=== PATIENT | male | born 1930 | race Caucasian/White ===

== ENCOUNTER 2016-10-04 14:58 | Inpatient (IN) | payer MEDICARE ==
[2016-10-04] MEDS ORDERED: SODIUM CHLORIDE 0.9% 500 ML IV STA (15:39)
[2016-10-04] MEDS ORDERED: SODIUM CHLORIDE 0.9% 1,000 ML IV STA (15:39)
[2016-10-04] MEDS ORDERED: RX INFO: IV CONTRAST WAS GIVEN 1 EACH MISC MISCELLANE PRN (15:41)
[2016-10-04] MEDS ORDERED: MENTHOL (NICE) LOZENGE MUCOUS MEM PRN (15:41)
--- NOTE | 2016-10-04 15:53 | ED ---
Weakness HPI - General Chief complaint: Weakness Stated complaint: Poss Dehydrated Time Seen by Provider: 10/04/16 15:29 Source: patient Mode of arrival: wheelchair Limitations: no limitations - History of Present Illness Initial comments: This 85-year-old white male presents complaining of generalized weakness. He states that he is still able to walk to the bathroom and back but that is about it. He relates a decrease in his appetite. He states that nothing seems to taste good. He denies any nausea or vomiting. He had some constipation his past week but was able to have a bowel movement and this seemed to resolve. He complains of a dry mouth. He complains of an occasional cough but this is nonproductive. He complains of some midepigastric abdominal pain. He denies any chest pain or shortness of breath. This is despite nursing notes that state that he had some chest pain. He does have a history of 2 inches of his esophagus being removed in 2002. He is followed up with Dr. Stiles from GI at our hospital previously. He states that he thinks he lost some weight over the past 3 days due to not eating. Her whole much weight he may have lost. He apparently saw his primary doctor recently who ordered a computed tomography scan of the chest abdomen and pelvis which she has not completed as of yet. He denies any other complaints or modifying factors. Denies any fevers or chills. - Related Data Home Medications Medication Instructions Recorded Confirmed Aspirin EC [Ecotrin Low Dose] 81 mg PO DAILY 10/04/16 10/04/16 Cholecalciferol [Vitamin D3] 1,000 unit PO 10/04/16 10/04/16 Clopidogrel [Plavix] 75 mg PO DAILY 10/04/16 10/04/16 L.acidoph,Paracasei, B.lactis 1 cap PO DAILY 10/04/16 10/04/16 [Probiotic] Levothyroxine Sodium [Synthroid] 25 mcg PO DAILY 10/04/16 10/04/16 Levothyroxine Sodium [Synthroid] 50 mcg PO DAILY 10/04/16 10/04/16 Omeprazole 20 mg PO DAILY 10/04/16 10/04/16 Pravastatin Sodium [Pravachol] 20 mg PO HS 10/04/16 10/04/16 Red Yeast Rice 600 mg PO DAILY 10/04/16 10/04/16 Vit C/E/Zn/Coppr/Lutein/Zeaxan 2 cap PO DAILY 10/04/16 10/04/16 [Preservision Areds 2 Softgel] Allergies Allergy/AdvReac Type Severity Reaction Status Date / Time No Known Allergies Allergy Verified 10/04/16 15:54 Review of Systems ROS Statement: Those systems with pertinent positive or pertinent negative responses have been documented in the HPI. ROS Other: All systems not noted in ROS Statement are negative. 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 VITAL SIGNS: Heart rate, blood pressure, respiratory rate reviewed as recorded in nurse's notes. EYES: Pupils are round and reactive. Extraocular movements are intact. No conjunctival / lid redness or swelling. ENT: No external evidence of injury, swelling, or ecchymosis. Airway is patent. Throat is clear. NECK: Nontender. No swelling or evidence of injury. No subcutaneous emphysema. Trachea is midline. No thyroid mass. HEART: Regular rate and rhythm. Good peripheral pulses. LUNGS/CHEST: Breath sounds clear and equal bilaterally. No rales, rhonchi, or wheezes. No ecchymosis, subcutaneous emphysema, or tenderness. ABDOMEN: There is mild tenderness noted to the midepigastric region. No palpable masses or organomegaly. No peritoneal signs. No abdominal wall swelling or ecchymosis. EXTREMITIES: No extremity tenderness. Normal muscle tone and function. No thoracolumbar tenderness. NEUROLOGIC: Sensation is grossly intact. Cranial nerve exam reveals face is symmetrical, tongue is midline, speech is clear. SKIN: No abrasions or ecchymosis is noted. No induration or masses noted. PSYCHIATRIC: Alert and oriented. Appropriate behavior and judgment. Limitations: no limitations Course Vital Signs 10/04/16 10/04/16 10/04/16 15:09 16:22 17:50 Temperature 96.7 F L Pulse Rate 100 70 69 Respiratory 18 18 18 Rate Blood Pressure 142/80 183/88 185/86 O2 Sat by Pulse 98 97 96 Oximetry Medical Decision Making - Medical Decision Making The patient was seen and examined. All diagnostics were reviewed. The EKG shows a normal sinus rhythm with no acute ST-T wave changes noted. An occasional PVC is noted. There are no acute ST-T wave changes identified. The NV interval is 132, QRS duration is 84, and the QTc interval is 444. An IV is started and he is hydrated. He refuses anything for pain. He does request a mouth lozenge for his dry mouth and this is ordered. Laboratories reviewed. The CT of the thorax abdomen and pelvis does show evidence of bilateral pneumonia as well as a right pleural effusion, a 4.6 cm thoracic aortic aneurysm , a bladder stone, and a liver hemangioma. It is felt that his weakness and decrease in appetite may be related to the pneumonia and he will be treated for this. He receives some Levaquin intravenously. The exact cause of his midepigastric abdominal pain is not definitively determine but it potentially could be related to a gastritis. GI prophylaxis will be maintained. Case is discussed with internal medicine and patient is admitted to the hospital for further treatment. - Lab Data Result diagrams: 10/04/16 15:50 10/04/16 15:50 Lab Results 10/04/16 10/04/16 10/04/16 Range/Units 14:20 15:50 15:50 WBC 8.1 (3.8-10.6) k/uL RBC 5.11 (4.30-5.90) m/uL Hgb 14.7 (13.0-17.5) gm/dL Hct 46.0 (39.0-53.0) % MCV 90.1 (80.0-100.0) fL MCH 28.8 (25.0-35.0) pg MCHC 32.0 (31.0-37.0) g/dL RDW 15.4 (11.5-15.5) % Plt Count 215 (150-450) k/uL Neutrophils % 86 % Lymphocytes % 6 % Monocytes % 6 % Eosinophils % 0 % Basophils % 0 % Neutrophils # 6.9 (1.3-7.7) k/uL Lymphocytes # 0.5 L (1.0-4.8) k/uL Monocytes # 0.5 (0-1.0) k/uL Eosinophils # 0.0 (0-0.7) k/uL Basophils # 0.0 (0-0.2) k/uL PT (9.0-12.0) sec INR (<1.1) APTT (22.0-30.0) sec Sodium (137-145) mmol/L Potassium (3.5-5.1) mmol/L Chloride (98-107) mmol/L Carbon Dioxide (22-30) mmol/L Anion Gap mmol/L BUN (9-20) mg/dL Creatinine (0.66-1.25) mg/dL Est GFR (MDRD) Af Amer (>60 ml/min/1.73 sqM) Est GFR (MDRD) Non-Af (>60 ml/min/1.73 sqM) Glucose (74-99) mg/dL Calcium (8.4-10.2) mg/dL Phosphorus (2.5-4.5) mg/dL Magnesium (1.6-2.3) mg/dL Total Bilirubin (0.2-1.3) mg/dL AST (17-59) U/L ALT (21-72) U/L Alkaline Phosphatase (38-126) U/L Total Creatine Kinase 46 L (55-170) U/L CK-MB (CK-2) 1.4 (0.0-2.4) ng/mL CK-MB (CK-2) Rel Index 3.0 Troponin I <0.012 (0.000-0.034) ng/mL Total Protein (6.3-8.2) g/dL Albumin (3.5-5.0) g/dL Amylase (30-110) U/L Lipase (23-300) U/L TSH (0.465-4.680) mIU/L Urine Color Yellow Urine Appearance Cloudy (Clear) Urine pH 5.5 (5.0-8.0) Ur Specific [place] 1.017 (1.001-1.035) Urine Protein 3+ H (Negative) Urine Glucose (UA) Negative (Negative) Urine Ketones 1+ H (Negative) Urine Blood Negative (Negative) Urine Nitrite Negative (Negative) Urine Bilirubin Negative (Negative) Urine Urobilinogen <2.0 (<2.0) mg/dL Ur Leukocyte Esterase Negative (Negative) Urine RBC 2 (0-5) /hpf Urine WBC 9 H (0-5) /hpf Ur Squamous Epith Cells 13 H (0-4) /hpf Amorphous Sediment Rare H (None) /hpf Hyaline Casts 49 H (0-2) /lpf Urine Mucus Rare H (None) /hpf 10/04/16 10/04/16 Range/Units 15:50 15:50 WBC (3.8-10.6) k/uL RBC (4.30-5.90) m/uL Hgb (13.0-17.5) gm/dL Hct (39.0-53.0) % MCV (80.0-100.0) fL MCH (25.0-35.0) pg MCHC (31.0-37.0) g/dL RDW (11.5-15.5) % Plt Count (150-450) k/uL Neutrophils % % Lymphocytes % % Monocytes % % Eosinophils % % Basophils % % Neutrophils # (1.3-7.7) k/uL Lymphocytes # (1.0-4.8) k/uL Monocytes # (0-1.0) k/uL Eosinophils # (0-0.7) k/uL Basophils # (0-0.2) k/uL PT 10.4 (9.0-12.0) sec INR 1.0 (<1.1) APTT 28.2 (22.0-30.0) sec Sodium 141 (137-145) mmol/L Potassium 4.5 (3.5-5.1) mmol/L Chloride 102 (98-107) mmol/L Carbon Dioxide 26 (22-30) mmol/L Anion Gap 13 mmol/L BUN 37 H (9-20) mg/dL Creatinine 1.21 (0.66-1.25) mg/dL Est GFR (MDRD) Af Amer >60 (>60 ml/min/1.73 sqM) Est GFR (MDRD) Non-Af 57 (>60 ml/min/1.73 sqM) Glucose 97 (74-99) mg/dL Calcium 9.2 (8.4-10.2) mg/dL Phosphorus 4.1 (2.5-4.5) mg/dL Magnesium 2.1 (1.6-2.3) mg/dL Total Bilirubin 0.8 (0.2-1.3) mg/dL AST 69 H (17-59) U/L ALT 54 (21-72) U/L Alkaline Phosphatase 89 (38-126) U/L Total Creatine Kinase (55-170) U/L CK-MB (CK-2) (0.0-2.4) ng/mL CK-MB (CK-2) Rel Index Troponin I (0.000-0.034) ng/mL Total Protein 7.2 (6.3-8.2) g/dL Albumin 3.7 (3.5-5.0) g/dL Amylase 105 (30-110) U/L Lipase 321 H (23-300) U/L TSH 2.760 (0.465-4.680) mIU/L Urine Color Urine Appearance (Clear) Urine pH (5.0-8.0) Ur Specific [place] (1.001-1.035) Urine Protein (Negative) Urine Glucose (UA) (Negative) Urine Ketones (Negative) Urine Blood (Negative) Urine Nitrite (Negative) Urine Bilirubin (Negative) Urine Urobilinogen (<2.0) mg/dL Ur Leukocyte Esterase (Negative) Urine RBC (0-5) /hpf Urine WBC (0-5) /hpf Ur Squamous Epith Cells (0-4) /hpf Amorphous Sediment (None) /hpf Hyaline Casts (0-2) /lpf Urine Mucus (None) /hpf Disposition Clinical Impression: Dehydration, Weakness, Pneumonia, Abdominal pain, Bladder stone, Thoracic aortic aneurysm without rupture, Liver hemangioma, Pleural effusion, right Disposition: ADMITTED IP TO THIS [facility] Condition: Fair Time of Disposition: 18:27 Decision Date: 10/04/16 Decision Time: 18:27
[2016-10-04 16:05] LABS: Basophils % (A) 0 %; CH 29.1; CHCM 32.5; Eosinophils % (A) 0 %; HDW 2.64; HGB 14.7 gm/dL (13.0-17.5); Luc # (Auto) 0.12; Luc % (Auto) 2; Lymphocytes # (A) 0.5 k/uL (1.0-4.8); Lymphocytes % (A) 6 %; MCH 28.8 pg (25.0-35.0); MCV 90.1 fL (80.0-100.0); Mean Platelet Volume 7.2; Monocytes # (A) 0.5 k/uL (0-1.0); Monocytes % (A) 6 %; Neutrophils # (A) 6.9 k/uL (1.3-7.7); Neutrophils % (A) 86 %; RBC 5.11 m/uL (4.30-5.90); RDW 15.4 % (11.5-15.5); WBC 8.1 k/uL (3.8-10.6); WBC (Perox) 8.15
[2016-10-04 16:11] LABS: Partial Thromboplastin Time 28.2 sec (22.0-30.0); Prothrombin Time 10.4 sec (9.0-12.0)
[2016-10-04 16:13] LABS: ALT 54 U/L (21-72); AST 69 U/L (17-59); Alkaline Phosphatase 89 U/L (38-126); Amylase 105 U/L (30-110); Anion Gap 13 mmol/L; Blood Urea Nitrogen 37 mg/dL (9-20); Calcium 9.2 mg/dL (8.4-10.2); Carbon Dioxide 26 mmol/L (22-30); Chloride 102 mmol/L (98-107); Glucose 97 mg/dL (74-99); Magnesium 2.1 mg/dL (1.6-2.3); Non-African American GFR(MDRD) 57 (>60 ml/min/1.73 sqM); Phosphorous 4.1 mg/dL (2.5-4.5); Potassium 4.5 mmol/L (3.5-5.1); Sodium 141 mmol/L (137-145); Total Bilirubin 0.8 mg/dL (0.2-1.3); Total Protein 7.2 g/dL (6.3-8.2)
[2016-10-04 16:23] LABS: Creatine Kinase 46 U/L (55-170)
[2016-10-04 16:36] LABS: Creatine Kinase MB 1.4 ng/mL (0.0-2.4); Troponin I <0.012 ng/mL (0.000-0.034)
[2016-10-04 16:43] LABS: Amorphous Sediment,Urine Rare /hpf; Appearance,Urine Cloudy (Clear); Bilirubin,Urine Negative (Negative); Glucose,Urine (UA) Negative (Negative); Ketones,Urine 1+ (Negative); Leukocyte Esterase,Urine Negative (Negative); Mucus,Urine Rare /hpf; Nitrite,Urine Negative (Negative); PH, Urine 5.5 (5.0-8.0); Particle Count 7666; Protein,Urine 3+ (Negative); RBC,Urine 2 /hpf (0-5); Specific Gravity,Urine 1.017 (1.001-1.035); Squamous Epithelial Cell,Urine 13 /hpf (0-4); UA Billing (MACRO vs. MICRO) MICRO; Urobilinogen,Urine <2.0 mg/dL (<2.0); WBC,Urine 9 /hpf (0-5)
--- NOTE | 2016-10-04 17:46 | CT ---
EXAMINATION TYPE: CT ChestAbdPelvis w con DATE OF EXAM: 10/04/2016 5:31 PM COMPARISON: NONE HISTORY: Patient complains of chest and epigastric pain and "not feeling right." CT DLP: 1220 mGycm Automated exposure control for dose reduction was used. CONTRAST: CT scan of the chest, abdomen and pelvis is performed without Oral Contrast and with IV Contrast, pat ient injected with 100 mL of Omnipaque 300. FINDINGS: There is previous surgery with apparent gastric pull-through procedure and resection of the esophagus . The stomach is in the right paraspinal hemithorax. There is moderate patchy pneumonic consolidation at the lung apices. There is a mild right pleural effusion. There is no pericardial effusion. There is mild infiltrate in the right middle lobe anteriorly as well as the lingula left upper lobe. There is a patchy infiltrate in the lateral right lower lobe. There are no hilar masses. I see no definite filling defects in the pulmonary arteries. Thoracic aort a is atheromatous. There is aneurysm of the thoracic aorta with 4.6 cm ascending aorta. There are numerous surgical clips in the epigastrium. There are numerous small rounded hypodensities in the spleen consistent with multiple cysts. There is a 2 cm hypodense area in the anterior right lo be of the liver with some nodular enhancement that is probably a hemangioma. Left renal cortex shows some thinning and. There is no hydronephrosis. There is a 2.5 cm cyst on the upper pole right kidney. There is no adrenal mass. Bile ducts are not dilated. Abdominal aorta is atheromatous. There is no retroperitoneal adenopathy. There is no sign of a pancreatic mass. There is a 1.2 cm calculus in the posterior urinary bladder on the left side. There is no evidence of a bowel obstruction. There is thoracic kyphotic curvature. I see no definite compression fracture. T here are spondylotic changes in the thoracic and lumbar spine. I see no focal bone destruction. Gallbladder appears normal. IMPRESSION: Atherosclerotic vascular disease. Aneurysm of the ascending aorta. No evidence of dissect ion. Gastric pull-through procedure. Right pleural effusions. Bilateral pulmonary infiltrates as desc ribed above. Right renal cortical atrophy. Right renal cyst. Large bladder stone. Hemangioma in the anterior liver.
[2016-10-04] MEDS ORDERED: LEVOFLOXACIN 750MG-D5W PMX 750 MG in DEXTROSE/WATER 1 150ML.BAG IVPB STA (18:09)
[2016-10-04] MEDS ORDERED: PNEUMONIA PROTOCOL UTILIZED 1 EACH MISC PO PRN (18:27)
[2016-10-04] MEDS ORDERED: IPRATROPIUM-ALBUTEROL 3 ML NEB INHALATION PRN ×2 (18:27→20:21)
--- NOTE | 2016-10-04 18:33 | ED ---
Medical Decision Making - Medical Decision Making The patient's lipase later came back slightly elevated in the possibility of a pancreatitis is also possible especially in light of his midepigastric abdominal pain. - Lab Data Result diagrams: 10/04/16 15:50 10/04/16 15:50 Lab Results 10/04/16 10/04/16 10/04/16 Range/Units 14:20 15:50 15:50 WBC 8.1 (3.8-10.6) k/uL RBC 5.11 (4.30-5.90) m/uL Hgb 14.7 (13.0-17.5) gm/dL Hct 46.0 (39.0-53.0) % MCV 90.1 (80.0-100.0) fL MCH 28.8 (25.0-35.0) pg MCHC 32.0 (31.0-37.0) g/dL RDW 15.4 (11.5-15.5) % Plt Count 215 (150-450) k/uL Neutrophils % 86 % Lymphocytes % 6 % Monocytes % 6 % Eosinophils % 0 % Basophils % 0 % Neutrophils # 6.9 (1.3-7.7) k/uL Lymphocytes # 0.5 L (1.0-4.8) k/uL Monocytes # 0.5 (0-1.0) k/uL Eosinophils # 0.0 (0-0.7) k/uL Basophils # 0.0 (0-0.2) k/uL PT (9.0-12.0) sec INR (<1.1) APTT (22.0-30.0) sec Sodium (137-145) mmol/L Potassium (3.5-5.1) mmol/L Chloride (98-107) mmol/L Carbon Dioxide (22-30) mmol/L Anion Gap mmol/L BUN (9-20) mg/dL Creatinine (0.66-1.25) mg/dL Est GFR (MDRD) Af Amer (>60 ml/min/1.73 sqM) Est GFR (MDRD) Non-Af (>60 ml/min/1.73 sqM) Glucose (74-99) mg/dL Calcium (8.4-10.2) mg/dL Phosphorus (2.5-4.5) mg/dL Magnesium (1.6-2.3) mg/dL Total Bilirubin (0.2-1.3) mg/dL AST (17-59) U/L ALT (21-72) U/L Alkaline Phosphatase (38-126) U/L Total Creatine Kinase 46 L (55-170) U/L CK-MB (CK-2) 1.4 (0.0-2.4) ng/mL CK-MB (CK-2) Rel Index 3.0 Troponin I <0.012 (0.000-0.034) ng/mL Total Protein (6.3-8.2) g/dL Albumin (3.5-5.0) g/dL Amylase (30-110) U/L Lipase (23-300) U/L TSH (0.465-4.680) mIU/L Urine Color Yellow Urine Appearance Cloudy (Clear) Urine pH 5.5 (5.0-8.0) Ur Specific [place] 1.017 (1.001-1.035) Urine Protein 3+ H (Negative) Urine Glucose (UA) Negative (Negative) Urine Ketones 1+ H (Negative) Urine Blood Negative (Negative) Urine Nitrite Negative (Negative) Urine Bilirubin Negative (Negative) Urine Urobilinogen <2.0 (<2.0) mg/dL Ur Leukocyte Esterase Negative (Negative) Urine RBC 2 (0-5) /hpf Urine WBC 9 H (0-5) /hpf Ur Squamous Epith Cells 13 H (0-4) /hpf Amorphous Sediment Rare H (None) /hpf Hyaline Casts 49 H (0-2) /lpf Urine Mucus Rare H (None) /hpf 10/04/16 10/04/16 Range/Units 15:50 15:50 WBC (3.8-10.6) k/uL RBC (4.30-5.90) m/uL Hgb (13.0-17.5) gm/dL Hct (39.0-53.0) % MCV (80.0-100.0) fL MCH (25.0-35.0) pg MCHC (31.0-37.0) g/dL RDW (11.5-15.5) % Plt Count (150-450) k/uL Neutrophils % % Lymphocytes % % Monocytes % % Eosinophils % % Basophils % % Neutrophils # (1.3-7.7) k/uL Lymphocytes # (1.0-4.8) k/uL Monocytes # (0-1.0) k/uL Eosinophils # (0-0.7) k/uL Basophils # (0-0.2) k/uL PT 10.4 (9.0-12.0) sec INR 1.0 (<1.1) APTT 28.2 (22.0-30.0) sec Sodium 141 (137-145) mmol/L Potassium 4.5 (3.5-5.1) mmol/L Chloride 102 (98-107) mmol/L Carbon Dioxide 26 (22-30) mmol/L Anion Gap 13 mmol/L BUN 37 H (9-20) mg/dL Creatinine 1.21 (0.66-1.25) mg/dL Est GFR (MDRD) Af Amer >60 (>60 ml/min/1.73 sqM) Est GFR (MDRD) Non-Af 57 (>60 ml/min/1.73 sqM) Glucose 97 (74-99) mg/dL Calcium 9.2 (8.4-10.2) mg/dL Phosphorus 4.1 (2.5-4.5) mg/dL Magnesium 2.1 (1.6-2.3) mg/dL Total Bilirubin 0.8 (0.2-1.3) mg/dL AST 69 H (17-59) U/L ALT 54 (21-72) U/L Alkaline Phosphatase 89 (38-126) U/L Total Creatine Kinase (55-170) U/L CK-MB (CK-2) (0.0-2.4) ng/mL CK-MB (CK-2) Rel Index Troponin I (0.000-0.034) ng/mL Total Protein 7.2 (6.3-8.2) g/dL Albumin 3.7 (3.5-5.0) g/dL Amylase 105 (30-110) U/L Lipase 321 H (23-300) U/L TSH 2.760 (0.465-4.680) mIU/L Urine Color Urine Appearance (Clear) Urine pH (5.0-8.0) Ur Specific [place] (1.001-1.035) Urine Protein (Negative) Urine Glucose (UA) (Negative) Urine Ketones (Negative) Urine Blood (Negative) Urine Nitrite (Negative) Urine Bilirubin (Negative) Urine Urobilinogen (<2.0) mg/dL Ur Leukocyte Esterase (Negative) Urine RBC (0-5) /hpf Urine WBC (0-5) /hpf Ur Squamous Epith Cells (0-4) /hpf Amorphous Sediment (None) /hpf Hyaline Casts (0-2) /lpf Urine Mucus (None) /hpf Disposition Clinical Impression: Dehydration, Weakness, Pneumonia, Abdominal pain, Bladder stone, Thoracic aortic aneurysm without rupture, Liver hemangioma, Pleural effusion, right, Pancreatitis Disposition: ADMITTED IP TO THIS HOSP Condition: Fair Referrals: Janene Martinez MD [Primary Care Provider] - 1-2 days
[2016-10-04] MEDS ORDERED: HYDROmorphone 1 MG/ML 1 ML SYRINGE IVP PRN (18:34)
[2016-10-04] MEDS ORDERED: ONDANSETRON 4 MG/2 ML VIAL IVP PRN (18:35)
[2016-10-04] MEDS ORDERED: LABETALOL 5 MG/ML VIAL MDV IVP PRN (18:57)
[2016-10-04] MEDS ORDERED: amLODIPine 2.5 MG TAB PO SCH (20:30)
[2016-10-04] MEDS: PRAVASTATIN SODIUM 20 MG TAB PO SCH (21:21)
[2016-10-04] MEDS: CHOLECALCIFEROL 1,000 UNIT TAB PO SCH (21:21)
[2016-10-04] MEDS ORDERED: hydrALAZINE HCL 20 MG/ML 1 ML VIAL IVP PRN (22:20)
[2016-10-04] MEDS ORDERED: cloNIDine HCL 0.1 MG TAB PO PRN (22:20)
--- NOTE | 2016-10-04 22:21 | XR ---
EXAMINATION TYPE: XR chest 1V portable DATE OF EXAM: 10/04/2016 10:17 PM COMPARISON: NONE HISTORY: Pneumonia TECHNIQUE: Single frontal view of the chest is obtained. FINDINGS: There is increased density in the right paraspinal region related to gastric pull-through procedure. There is right pleural effusion. There is no heart failure. There is patchy pneumonic cons olidation in the right lower lobe. IMPRESSION: Right lower lobe pneumonia. Right pleural effusion. No heart failure.
[2016-10-05] MEDS: LEVOTHYROXINE 75 MCG TAB PO SCH (05:57)
[2016-10-05] MEDS: HEPARIN SODIUM,PORCINE 5,000 UNIT/ML 1 ML VIAL SQ SCH ×2 (07:26→21:36)
[2016-10-05] MEDS: amLODIPine 2.5 MG TAB PO SCH ×2 (07:26→21:35)
[2016-10-05] MEDS: LEVOFLOXACIN 750MG-D5W PMX 750 MG in DEXTROSE/WATER 1 150ML.BAG IVPB SCH (07:27)
[2016-10-05] MEDS: OSELTAMIVIR 60 MG/10 ML ORAL SYRINGE PO SCH (07:27)
--- NOTE | 2016-10-05 07:44 | P.GSCN ---
History of Present Illness Reason for Consult: Dysphagia History of present illness: The patient was not in his bed. I spoke with the nurse. He is admitted with influenza and general weakness. He's been tolerating clear liquids and is hungry. I will reevaluate him tomorrow. 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 Past Anesthesia/Blood Transfusion Reactions: No Reported Reaction Date of Last Stent Placement:: 01-20-13 Past Psychological History: No Psychological Hx Reported Additional Psychological History / Comment(s): lives with his sisters [place] style home that has 3 [address] steps. no outside services or med equipment Smoking Status: Former smoker Past Alcohol Use History: None Reported Additional Past Alcohol Use History / Comment(s): per 2013 chart- pt started smoking 1950 and quit 1969's, smoked 1ppd Past Drug Use History: None Reported - Past Family History Father Family Medical History: Hypertension Mother Family Medical History: Hypertension Medications and Allergies Home Medications Medication Instructions Recorded Confirmed Type Aspirin EC [Ecotrin Low Dose] 81 mg PO DAILY 10/04/16 10/04/16 History Cholecalciferol [Vitamin D3] 1,000 unit PO HS 10/04/16 10/04/16 History Clopidogrel [Plavix] 75 mg PO DAILY 10/04/16 10/04/16 History L.acidoph,Paracasei, B.lactis 1 cap PO DAILY 10/04/16 10/04/16 History [Probiotic] Levothyroxine Sodium [Synthroid] 25 mcg PO DAILY 10/04/16 10/04/16 History Levothyroxine Sodium [Synthroid] 50 mcg PO DAILY 10/04/16 10/04/16 History Omeprazole 20 mg PO DAILY 10/04/16 10/04/16 History Pravastatin Sodium [Pravachol] 20 mg PO HS 10/04/16 10/04/16 History Red Yeast Rice 600 mg PO DAILY 10/04/16 10/04/16 History Vit C/E/Zn/Coppr/Lutein/Zeaxan 2 cap PO DAILY 10/04/16 10/04/16 History [Preservision Areds 2 Softgel] Allergies Allergy/AdvReac Type Severity Reaction Status Date / Time No Known Allergies Allergy Verified 10/04/16 15:54 Surgical - Exam Osteopathic Statement: *. No significant issues noted on an osteopathic structural exam other than those noted in the History and Physical/Consult. Vital Signs Temp Pulse Resp BP Pulse Ox 96.7 F L 100 18 142/80 98 10/04/16 15:09 10/04/16 15:09 10/04/16 15:09 10/04/16 15:09 10/04/16 15:09 Results - Labs 10/04/16 15:50 10/04/16 15:50 Abnormal Lab Results - Last 24 Hours (Table) 10/04/16 Range/Units 23:07 Influenza Type B (PCR) Detected H (Not Detectd)
[2016-10-05 08:05] LABS: Basophils % (A) 0 %; CH 28.7; CHCM 31.9; Eosinophils % (A) 0 %; HCT 43.7 % (39.0-53.0); HDW 2.65; HGB 13.8 gm/dL (13.0-17.5); Luc # (Auto) 0.13; Luc % (Auto) 1; Lymphocytes # (A) 0.8 k/uL (1.0-4.8); Lymphocytes % (A) 8 %; MCH 28.6 pg (25.0-35.0); MCHC 31.5 g/dL (31.0-37.0); MCV 90.6 fL (80.0-100.0); Mean Platelet Volume 7.1; Monocytes # (A) 0.5 k/uL (0-1.0); Monocytes % (A) 6 %; Neutrophils # (A) 8.1 k/uL (1.3-7.7); Neutrophils % (A) 84 %; RBC 4.82 m/uL (4.30-5.90); RDW 15.4 % (11.5-15.5); WBC 9.6 k/uL (3.8-10.6); WBC (Perox) 9.81
[2016-10-05 08:27] LABS: Anion Gap 15 mmol/L; Blood Urea Nitrogen 28 mg/dL (9-20); Calcium 8.5 mg/dL (8.4-10.2); Carbon Dioxide 19 mmol/L (22-30); Chloride 108 mmol/L (98-107); Glucose 89 mg/dL (74-99); Non-African American GFR(MDRD) >60 (>60 ml/min/1.73 sqM); Potassium 3.6 mmol/L (3.5-5.1); Sodium 142 mmol/L (137-145)
[2016-10-05] MEDS: IPRATROPIUM-ALBUTEROL 3 ML NEB INHALATION SCH ×4 (08:28→21:50)
--- NOTE | 2016-10-05 08:28 | HP ---
DATE OF ADMISSION: 10/04/2016 CHIEF COMPLAINT: Weakness. HISTORY OF PRESENT ILLNESS: This 85-year-old gentleman with a past history of multiple medical problems including CAD/coronary artery bypass grafting, history of GERD, hypertension, hyperlipidemia, history of degenerative joint disease, history of pneumonia, history of prostate disorder, hypothyroidism, history of bladder surgery, being followed by primary care physician in [facility] also had extensive surgery previously with . Apparent Molina's esophagus or precancerous esophageal lesion. Patient was losing weight. The patient lost. The patient emaciated. The patient complaining of generalized tiredness, weakness. Patient also has occasional cough. Patient came to [facility] and admitted to the hospital for further evaluation and treatment. Cough is nonproductive. The patient has extensive CAT scan studies which showed bilateral pulmonary infiltrates suggestive of pneumonia and esophageal pull through and right renal cortical atrophy, large bladder stone and hemangioma of the anterior liver also. There is no history of any fever, rigors or chills. No history of headache, loss of consciousness or seizures at this time. 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 Medications: Home medications include: 1. Vitamin C. 2. Vitamin E. 3. Zinc. 6. Pravachol 20 mg q.h.s. 7. Omeprazole 20 mg p.o. daily. 8. Synthroid 75 mcg p.o. daily. 9. Lactobacillus. 10. Probiotic 1 capsule daily. 11. Plavix 75 milligrams p.o. daily. 12. Vitamin D3 3000 q.h.s. 13. Ecotrin 81 mg daily. ALLERGIES: None. FAMILY HISTORY: History of hypertension in the family. SOCIAL HISTORY: Previous history of smoking. No history of current smoking. No alcohol intake. REVIEW OF SYSTEMS: ENT: Diminishing hearing. Diminished vision. CARDIOVASCULAR: As mentioned earlier. GASTROINTESTINAL: As mentioned earlier. : No dysuria. Nervous system: As mentioned earlier. ALLERGY/IMMUNOLOGY: No asthma or hayfever. MUSCULOSKELETAL: As mentioned earlier. HEMATOLOGY/ONCOLOGY: As mentioned earlier. ENDOCRINE: As mentioned earlier. CONSTITUTIONAL: As mentioned earlier. DERMATOLOGY: Negative. Rheumatology: Negative. PSYCHIATRY: As mentioned earlier. PHYSICAL EXAMINATION: GENERAL: The patient is alert and oriented x3. Pulse 69, blood pressure 185/83, respiratory rate 18, temperature 97.4, pulse ox 96% on 2 L. HEENT: Conjunctivae normal. Oral mucosa moist. NECK: No jugular venous distention. No carotid bruit. No lymph node enlargement. CARDIOVASCULAR SYSTEM: S1, S2 muffled. No S3, no S4. RESPIRATORY: Breath sounds diminished at the bases. Bilaterally scattered rhonchi and crackles. ABDOMEN: Soft, nontender. No mass palpable. Minimal diffuse distention present. Dilated veins of the lower abdominal wall and also present. No tenderness. No guarding. No rigidity. No mass palpable. No ascites. LEGS: No edema. No swelling. Nervous system: Higher functions as mentioned. Moves all 4 limbs. Significantly emaciated and wasted. Significant diffuse weakness also present. SKIN: No ulcer, rash or bleeding. LYMPHATICS: No lymph nodes palpable in the neck, axillae or groin. Joints: No active deforming arthropathy. Labs are CBC within normal limits. PT is 10.4. INR is 1.1, BUN is 37, AST 69, lipase is 321 and amylase is 105. TSH 2.760. UA noted. Weight is 44 kg and BMA 14.1. ASSESSMENT: 1. Bilateral pneumonia, possibly gram-negative. 2. Generalized weakness and tiredness with generalized emaciation and weight loss. 3. Severe protein calorie malnutrition with a BMI 14.1. 4. Increased AST. 5. Increased lipase with a normal amylase. 6. Increased BUN with some dehydration, present on admission. 7. Rule out urinary tract infection. 8. History of esophageal precancer lesion and esophagectomy and gastric pull-through. 9. History of coronary artery disease. 10. History of gastroesophageal reflux disease. 11. Hypertension. 12. Hyperlipidemia. 13. History of degenerative joint disease. 14. History of prostate disorder. 15. Hypothyroidism. 16. History of shingles. 17. History of peptic ulcer disease. 18. History of constipation. 19. History of bladder surgery and bladder stone. 20. History of coronary artery disease and stent. 21. Remote history nicotine dependence. 22. FULL CODE. RECOMMENDATIONS AND DISCUSSION: In this 85-year-old gentleman who presented with multiple complex medical issues, we will monitor the patient closely. Continue the current medications. Continue symptomatic treatment. We will initiate broad-spectrum antibiotics and as well as I would recommend bronchodilators, consultation with surgery and as well as Dr. Mathis. Otherwise, continue to monitor. Baseline labs will be ordered. Overall prognosis guarded. The patient could have a primary surgical problem because the patient is also complaining of significant diminishing appetite. Further recommendations to follow. Copy of dictation forwarded to the primary physician. I would continue to monitor. I would also obtain the urine culture and blood cultures also. See orders for details. Further recommendations to follow. MTDD
[2016-10-05] MEDS ORDERED: LEVOTHYROXINE 50 MCG TAB PO SCH (09:00)
[2016-10-05] MEDS ORDERED: NON-FORMULARY DRUG (Red Yeast Rice [Red Yeast Rice] 600 MG) PO SCH (09:00)
[2016-10-05] MEDS ORDERED: ENOXAPARIN 40 MG/0.4 ML SYRINGE SQ SCH (09:00)
[2016-10-05] MEDS: PANTOPRAZOLE 40 MG/10 ML VIAL IVP SCH (10:03)
[2016-10-05] MEDS: ASPIRIN 81 MG CHEW PO SCH (10:03)
[2016-10-05] MEDS: CLOPIDOGREL 75 MG TAB PO SCH (10:03)
[2016-10-05] MEDS: B COMPLEX-VIT C-VIT E-ZINC 1 EACH TAB PO SCH (10:03)
[2016-10-05] MEDS: LACTOBACILLUS ACIDOPH & BULGAR 1 EACH PACKET PO SCH (10:04)
[2016-10-05 11:27] VITALS: BMI 14.1
--- NOTE | 2016-10-05 13:10 | P.CNPUL ---
History of Present Illness Consult date: 10/05/16 Reason for consult: dyspnea History of present illness: 85-year-old male patient with previous history of coronary artery disease, bypass surgery, esophageal cancer status post transhiatal esophagectomy and gastric pull, coming in for generalized weakness, tiredness, weight loss, difficulty swallowing, unable to meet caloric requirements, and some degree of shortness of breath with cough and congestion. The patient denies having any aspiration. He was found to have positive influenza screen and he was started on Tamiflu. As part of further workup, a CAT scan of the chest was also ordered that showed a large intrathoracic stomach related to gastric pull post esophagectomy in addition to some vague limited infiltration of the right middle lobe and the left lingula. The patient was started and accommodation antibiotics including Tamiflu and Levaquin. Despite all this, the patient is not having any significant cough or sputum production. No signs of respiratory distress. He is on no oxygen at this point. He is a nonsmoker. He is very cachectic and thin and emaciated and he looks very malnourished and there is an obvious component of failure to thrive. No change in mental status. He is hard of hearing and is difficult to communicate with this patient. He tells that he is unable to ambulate. He needs assistance with activity and prior to that he was able to walk without the walker. He is living with his sister who is younger than him. He has no other complaints otherwise. Review of Systems Full review of system was done. No nausea. No vomiting. No diarrhea. No aspiration. He is able to swallow some liquids however it has become more difficult for him to swallow and he is having some difficulties in swallowing. His swallow evaluation was not done officially. He is losing weight. He has also a poor appetite. He has difficulty with vision and hearing. Very poor based on performance and functional status. Past Medical History Past Medical History: Coronary Artery Disease (CAD), Cancer, GERD/Reflux, Hyperlipidemia, Hypertension, Osteoarthritis (OA), Pneumonia, Prostate Disorder , Thyroid Disorder Additional Past Medical History / Comment(s): Coronary artery disease, hypothyroidism, hyperlipidemia, BPH, osteoarthritis, GE reflux, macular degeneration, impaired hearing, peripheral vascular disease, history of shingles , history of peptic ulcer disease, history of nephrolithiasis, history of esophageal cancer with a previous esophagectomy and gastric pull, bladder cancer , resected, chronic constipation, History of Any Multi-Drug Resistant Organisms: None Reported Past Surgical History: Bladder Surgery, Heart Catheterization With Stent Additional Past Surgical History / Comment(s): 2 inches of esophagus removed due to pre-cancer, turp, prostate bx, bladder sx d/t cancer, colonoscopy, upper endo. Past Anesthesia/Blood Transfusion Reactions: No Reported Reaction Date of Last Stent Placement:: 01-20-13 Past Psychological History: No Psychological Hx Reported Additional Psychological History / Comment(s): lives with his sisters [place] style home that has 3 [address] steps. no outside services or med equipment Smoking Status: Former smoker Past Alcohol Use History: None Reported Additional Past Alcohol Use History / Comment(s): per 2013 chart- pt started smoking 1949 and quit , smoked 1ppd Past Drug Use History: None Reported - Past Family History Father Family Medical History: Hypertension Mother Family Medical History: Hypertension Medications and Allergies Home Medications Medication Instructions Recorded Confirmed Type Aspirin EC [Ecotrin Low Dose] 81 mg PO DAILY 10/04/16 10/04/16 History Cholecalciferol [Vitamin D3] 1,000 unit PO HS 10/04/16 10/04/16 History Clopidogrel [Plavix] 75 mg PO DAILY 10/04/16 10/04/16 History L.acidoph,Paracasei, B.lactis 1 cap PO DAILY 10/04/16 10/04/16 History [Probiotic] Levothyroxine Sodium [Synthroid] 25 mcg PO DAILY 10/04/16 10/04/16 History Levothyroxine Sodium [Synthroid] 50 mcg PO DAILY 10/04/16 10/04/16 History Omeprazole 20 mg PO DAILY 10/04/16 10/04/16 History Pravastatin Sodium [Pravachol] 20 mg PO HS 10/04/16 10/04/16 History Red Yeast Rice 600 mg PO DAILY 10/04/16 10/04/16 History Vit C/E/Zn/Coppr/Lutein/Zeaxan 2 cap PO DAILY 10/04/16 10/04/16 History [Preservision Areds 2 Softgel] Allergies Allergy/AdvReac Type Severity Reaction Status Date / Time No Known Allergies Allergy Verified 10/04/16 15:54 Physical Exam Vitals: Vital Signs Temp Pulse Pulse Resp BP BP Pulse Ox 10/05/16 08:40 84 10/05/16 08:35 154/75 10/05/16 08:28 82 16 10/05/16 08:00 16 10/05/16 07:00 98.6 F 80 16 182/91 94 L 10/04/16 23:00 168/77 10/04/16 22:24 97.4 F L 69 16 95 10/04/16 22:22 180/74 10/04/16 20:17 187/86 10/04/16 19:03 82 18 166/79 98 10/04/16 18:54 97.5 F L 80 18 96 Intake and Output 10/04/16 10/05/16 10/05/16 22:59 06:59 14:59 Intake Total 200 100 Output Total 100 Balance 200 0 Intake: Oral 200 100 Output: Urine 100 Other: Voiding Method Urinal Urinal # Voids 1 Weight 44.452 kg Patient Weight 10/06/16 06:59 Weight 44.452 kg Thin frail elderly male patient nonacute distress. He is not using excessive muscle breathing. He is quite emaciated and malnourished.Head exam was generally normal. There was no scleral icterus or corneal arcus. Mucous membranes were moist.Neck was supple and without jugular venous distension, thyromegaly, or carotid bruits. Carotids were easily palpable bilaterally. There was no adenopathy. Lung sounds are diminished bilaterally otherwise clear. Vessels are equal and symmetrical. No wheezes or rhonchi.Cardiac exam revealed the PMI to be normally situated and sized. The rhythm was regular and no extrasystoles were noted during several minutes of auscultation. The first and second heart sounds were normal and physiologic splitting of the second heart sound was noted. There were no murmurs, rubs, clicks, or gallops.Abdominal exam revealed normal bowel sounds. The abdomen was soft, non- tender, and without masses, organomegaly, or appreciable enlargement of the abdominal aorta.Examination of the extremities revealed easily palpable radial, femoral and pedal pulses. There was no cyanosis, clubbing or edema. The patient has significant muscle atrophy in lower extremities bilaterally and to some extent upper extremity. Results - Laboratory Findings CBC and BMP: 10/05/16 07:18 10/05/16 07:18 PT/INR, D-dimer PT 10.4 sec (9.0-12.0) 10/04/16 15:50 INR 1.0 (<1.1) 10/04/16 15:50 Abnormal lab findings: Abnormal Labs 10/04/16 10/05/16 10/05/16 23:07 07:18 07:18 Neutrophils # 8.1 H Lymphocytes # 0.8 L Chloride 108 H Carbon Dioxide 19 L BUN 28 H Influenza Type B (PCR) Detected H - Diagnostic Findings Chest x-ray: image reviewed CT scan - chest: image reviewed Assessment and Plan Plan: Assessment 1 shortness of breath and acute influenza syndrome. Limited infiltration in the lingula and right midlung area, significant is not clear. Rule out aspiration 2 cachexia malnourishment and failure to thrive 3 difficulties swallowing, under investigation. 4 coronary artery disease 5 esophageal cancer status post esophagectomy with gastric poor 6 hypertension 7 hyperlipidemia 8 hypothyroidism 9 BPH 10 brother cancer Plan Agree on the treatment. The pulmonary condition is stable for now. Continue same antibiotic coverage. Swallow evaluation. Unfortunately the patient is doing poorly in terms of his performance and functional and nutritional status. He has signs of failure to thrive. This is a dietary evaluation too.
[2016-10-05] MEDS: PRAVASTATIN SODIUM 20 MG TAB PO SCH (21:35)
[2016-10-05] MEDS: CHOLECALCIFEROL 1,000 UNIT TAB PO SCH (21:35)
[2016-10-06] MEDS: LEVOTHYROXINE 75 MCG TAB PO SCH (05:57)
[2016-10-06 07:19] LABS: Basophils % (A) 0 %; CH 29.2; CHCM 32.5; Eosinophils % (A) 0 %; HDW 2.68; HGB 12.9 gm/dL (13.0-17.5); Luc # (Auto) 0.07; Luc % (Auto) 1; Lymphocytes # (A) 0.4 k/uL (1.0-4.8); Lymphocytes % (A) 4 %; MCH 29.1 pg (25.0-35.0); MCHC 32.2 g/dL (31.0-37.0); MCV 90.4 fL (80.0-100.0); Mean Platelet Volume 7.1; Monocytes # (A) 0.5 k/uL (0-1.0); Monocytes % (A) 5 %; Neutrophils # (A) 7.9 k/uL (1.3-7.7); Neutrophils % (A) 90 %; RBC 4.42 m/uL (4.30-5.90); RDW 15.5 % (11.5-15.5); WBC 8.9 k/uL (3.8-10.6)
[2016-10-06 07:42] LABS: Anion Gap 10 mmol/L; Blood Urea Nitrogen 23 mg/dL (9-20); Calcium 8.8 mg/dL (8.4-10.2); Carbon Dioxide 25 mmol/L (22-30); Chloride 107 mmol/L (98-107); Glucose 96 mg/dL (74-99); Non-African American GFR(MDRD) >60 (>60 ml/min/1.73 sqM); Potassium 3.1 mmol/L (3.5-5.1); Sodium 142 mmol/L (137-145)
[2016-10-06] MEDS: HEPARIN SODIUM,PORCINE 5,000 UNIT/ML 1 ML VIAL SQ SCH ×3 (08:33→20:48)
[2016-10-06] MEDS: LEVOFLOXACIN 750MG-D5W PMX 750 MG in DEXTROSE/WATER 1 150ML.BAG IVPB SCH (08:33)
[2016-10-06] MEDS: ASPIRIN 81 MG CHEW PO SCH (08:33)
[2016-10-06] MEDS: OSELTAMIVIR 60 MG/10 ML ORAL SYRINGE PO SCH (08:33)
[2016-10-06] MEDS: PANTOPRAZOLE 40 MG/10 ML VIAL IVP SCH (08:33)
[2016-10-06] MEDS: amLODIPine 2.5 MG TAB PO SCH ×2 (08:33→20:48)
[2016-10-06] MEDS: CLOPIDOGREL 75 MG TAB PO SCH (08:33)
[2016-10-06] MEDS: LACTOBACILLUS ACIDOPH & BULGAR 1 EACH PACKET PO SCH (08:33)
--- NOTE | 2016-10-06 09:49 | P.GSCN ---
History of Present Illness Reason for Consult: Dysphagia History of present illness: The patient gives a history of not feeling well for several weeks. He initially had some issues with constipation and then developed diarrhea. Last Friday he began to be very ill and weak. He was seen at the emergency department at [facility] and also by his primary care. He continued to worsen so he came into the emergency department and was admitted. He's on day of influenza B. He's feeling somewhat better today. His main complaints are lack of appetite and getting full quickly. He denies any trouble swallowing or sticking sensation. He has a distant history of an esophagectomy with gastric pull-through for cancer in 2002. No significant swallowing issues after that surgery. Normally he maintains his weight at about 105 pounds. Review of Systems All systems: negative Past Medical History Past Medical History: Coronary Artery Disease (CAD), Cancer, GERD/Reflux, Hyperlipidemia, Hypertension, Osteoarthritis (OA), Pneumonia, Prostate Disorder , Thyroid Disorder Additional Past Medical History / Comment(s): Coronary artery disease, hypothyroidism, hyperlipidemia, BPH, osteoarthritis, GE reflux, macular degeneration, impaired hearing, peripheral vascular disease, history of shingles , history of peptic ulcer disease, history of nephrolithiasis, history of esophageal cancer with a previous esophagectomy and gastric pull, bladder cancer , resected, chronic constipation, History of Any Multi-Drug Resistant Organisms: None Reported Past Surgical History: Bladder Surgery, Heart Catheterization With Stent Additional Past Surgical History / Comment(s): 2 inches of esophagus removed due to pre-cancer, turp, prostate bx, bladder sx d/t cancer, colonoscopy, upper endo. Past Anesthesia/Blood Transfusion Reactions: No Reported Reaction Date of Last Stent Placement:: 01-20-13 Past Psychological History: No Psychological Hx Reported Additional Psychological History / Comment(s): lives with his sisters [place] style home that has [address]. no outside services or med equipment Smoking Status: Former smoker Past Alcohol Use History: None Reported Additional Past Alcohol Use History / Comment(s): per 2013 chart- pt started smoking 1949 and quit 1969's, smoked 1ppd Past Drug Use History: None Reported - Past Family History Father Family Medical History: Hypertension Mother Family Medical History: Hypertension Medications and Allergies Home Medications Medication Instructions Recorded Confirmed Type Aspirin EC [Ecotrin Low Dose] 81 mg PO DAILY 10/04/16 10/04/16 History Cholecalciferol [Vitamin D3] 1,000 unit PO HS 10/04/16 10/04/16 History Clopidogrel [Plavix] 75 mg PO DAILY 10/04/16 10/04/16 History L.acidoph,Paracasei, B.lactis 1 cap PO DAILY 10/04/16 10/04/16 History [Probiotic] Levothyroxine Sodium [Synthroid] 25 mcg PO DAILY 10/04/16 10/04/16 History Levothyroxine Sodium [Synthroid] 50 mcg PO DAILY 10/04/16 10/04/16 History Omeprazole 20 mg PO DAILY 10/04/16 10/04/16 History Pravastatin Sodium [Pravachol] 20 mg PO HS 10/04/16 10/04/16 History Red Yeast Rice 600 mg PO DAILY 10/04/16 10/04/16 History Vit C/E/Zn/Coppr/Lutein/Zeaxan 2 cap PO DAILY 10/04/16 10/04/16 History [Preservision Areds 2 Softgel] Allergies Allergy/AdvReac Type Severity Reaction Status Date / Time No Known Allergies Allergy Verified 10/04/16 15:54 Surgical - Exam Osteopathic Statement: *. No significant issues noted on an osteopathic structural exam other than those noted in the History and Physical/Consult. Vital Signs Temp Pulse Resp BP Pulse Ox 96.7 F L 100 18 142/80 98 10/04/16 15:09 10/04/16 15:09 10/04/16 15:09 10/04/16 15:09 10/04/16 15:09 - General no distress, cachectic - Neck trachea midline, no lymphadectomy - Respiratory normal respiratory effort - Abdomen Abdomen: soft, non tender Results - Labs 10/06/16 06:47 10/06/16 06:47 Abnormal Lab Results - Last 24 Hours (Table) 10/06/16 10/06/16 Range/Units 06:47 06:47 Hgb 12.9 L (13.0-17.5) gm/dL Neutrophils # 7.9 H (1.3-7.7) k/uL Lymphocytes # 0.4 L (1.0-4.8) k/uL Potassium 3.1 L (3.5-5.1) mmol/L BUN 23 H (9-20) mg/dL Diabetes panel 10/06/16 Range/Units 06:47 Sodium 142 (137-145) mmol/L Potassium 3.1 L (3.5-5.1) mmol/L Chloride 107 (98-107) mmol/L Carbon Dioxide 25 (22-30) mmol/L BUN 23 H (9-20) mg/dL Creatinine 1.08 (0.66-1.25) mg/dL Glucose 96 (74-99) mg/dL Calcium 8.8 (8.4-10.2) mg/dL Calcium panel 10/06/16 Range/Units 06:47 Calcium 8.8 (8.4-10.2) mg/dL Pituitary panel 10/06/16 Range/Units 06:47 Sodium 142 (137-145) mmol/L Potassium 3.1 L (3.5-5.1) mmol/L Chloride 107 (98-107) mmol/L Carbon Dioxide 25 (22-30) mmol/L BUN 23 H (9-20) mg/dL Creatinine 1.08 (0.66-1.25) mg/dL Glucose 96 (74-99) mg/dL Calcium 8.8 (8.4-10.2) mg/dL Adrenal panel 10/06/16 Range/Units 06:47 Sodium 142 (137-145) mmol/L Potassium 3.1 L (3.5-5.1) mmol/L Chloride 107 (98-107) mmol/L Carbon Dioxide 25 (22-30) mmol/L BUN 23 H (9-20) mg/dL Creatinine 1.08 (0.66-1.25) mg/dL Glucose 96 (74-99) mg/dL Calcium 8.8 (8.4-10.2) mg/dL Assessment and Plan (1) Influenza B Status: Acute (2) Protein calorie malnutrition Status: Acute (3) Weakness Status: Acute Plan: I don't feel the patient's poor oral intake is due to dysphagia. Rather a generalized failure to thrive. Would recommend calorie counts and encouraged supplements at least 3 times a day. If he is not able to get in adequate nutrition a feeding tube could be considered however he would not be a Candidate for a PEG tube, it would require an open jejunostomy tube since he's had the gastric pull-through.
--- NOTE | 2016-10-06 10:39 | PN ---
DATE OF SERVICE: 10/05/2016 This 85-year-old gentleman was admitted with significant weakness also thought to have bilateral pneumonia. The influenza is positive also at this time. The patient is being closely monitored. Patient also admitted for weakness and patient had esophageal pull-through surgery also by Dr. Gr and Dr. Mathis saw the patient at this time. Dr. Gr has recommended . Dr. Mathis is following the patient closely. PAST MEDICAL HISTORY: Reviewed. REVIEW OF SYSTEMS: CARDIOVASCULAR: No angina. RESPIRATORY: As mentioned earlier. GI: No nausea or vomiting. : No dysuria. NERVOUS SYSTEM: No numbness or weakness. Current medications are: 1. DuoNeb q.i.d. and p.r.n. 2. Norvasc 5 mg p.o. daily. 3. Aspirin 81 mg. 4. Vitamin D3 1000 q.h.s. 5. Catapres 0.1 q.4h. 6. Plavix 75 mg daily. 7. Heparin 5000 subcu b.i.d. 8. Apresoline 10 mg q.4 9. Dilaudid 0.5 q.3. 10. Levaquin 750 q.24 hours. 11. Synthroid 150 mEq p.o. daily. 12. Zofran. 13. Protonix. 14. Pravachol. PHYSICAL EXAMINATION: The patient is alert and oriented x3. Pulse is 74, blood pressure 100/60, respirations 19, temperature 97.9, pulse ox 95% on 3 liters. HEENT: Conjunctivae normal. NECK: No jugular venous distention. CARDIOVASCULAR: S1 and S2, muffled. RESPIRATORY: Breath sounds diminished at the bases. Bilateral scattered rhonchi and expiratory wheezing and crackles. ABDOMEN: Soft, nontender, no mass palpable. LEGS: No edema, no swelling. NERVOUS SYSTEM: Higher function as mentioned. Moves all four limbs. No focal motor deficits. LYMPHATIC: No lymphadenopathy in the neck, axillae or groin. SKIN: No ulcer, rash or bleeding. LABS: CBC within normal limits. Sodium 142, potassium 3.6, BUN is 28, lipase 321. Influenza B is positive. ASSESSMENT: 1. Bilateral pneumonia, possibly gram-negative, postinfluenza pneumonia, influenza B positive. 2. Generalized weakness and tiredness and generalized emaciation and weight loss. 3. Severe protein calorie malnutrition with body mass index of 14.1. 4. Increased AST. 5. Rule out dysphagia. 6. Increased lipase with a normal amylase. 7. Increased BUN with some dehydration present on admission. 8. Rule out urinary tract infection. 9. History of esophageal precancerous lesion and esophagectomy and gastric pull-through. 10. History of coronary artery disease. 11. History of gastroesophageal reflux disease. 12. Hypertension, essential. 13. Hyperlipidemia. 14. History of degenerative joint disease. 15. History of prostate disorder. 16. Hypothyroidism. 17. History of Shingles. 18. History of peptic ulcer disease. 19. History of constipation. 20. History of bladder surgery and bladder stone. 21. History of coronary artery disease and stent. 22. Remote history of nicotine dependence. 23. FULL CODE. RECOMMENDATIONS AND DISCUSSION: I recommend to continue the current medications, continue monitoring and symptomatic treatment. Otherwise at this time I would recommend continue with pulmonary and surgical evaluations. Tamiflu has been initiated. Continue with bronchodilators. Guarded prognosis because multiple complex medical issues. Further recommendations to follow. MTDD
[2016-10-06] MEDS: IPRATROPIUM-ALBUTEROL 3 ML NEB INHALATION SCH ×5 (11:21→20:48)
[2016-10-06] MEDS: POTASSIUM CHLORIDE ER 20 MEQ TAB.ER PO SCH ×2 (11:41→15:37)
[2016-10-06] MEDS: B COMPLEX-VIT C-VIT E-ZINC 1 EACH TAB PO SCH (11:42)
--- NOTE | 2016-10-06 15:59 | P.PN ---
Subjective 85-year-old male patient with previous history of coronary artery disease, bypass surgery, esophageal cancer status post transhiatal esophagectomy and gastric pull, coming in for generalized weakness, tiredness, weight loss, difficulty swallowing, unable to meet caloric requirements, and some degree of shortness of breath with cough and congestion. The patient denies having any aspiration. He was found to have positive influenza screen and he was started on Tamiflu. As part of further workup, a CAT scan of the chest was also ordered that showed a large intrathoracic stomach related to gastric pull post esophagectomy in addition to some vague limited infiltration of the right middle lobe and the left lingula. The patient was started and accommodation antibiotics including Tamiflu and Levaquin. Despite all this, the patient is not having any significant cough or sputum production. No signs of respiratory distress. He is on no oxygen at this point. He is a nonsmoker. He is very cachectic and thin and emaciated and he looks very malnourished and there is an obvious component of failure to thrive. No change in mental status. He is hard of hearing and is difficult to communicate with this patient. He tells that he is unable to ambulate. He needs assistance with activity and prior to that he was able to walk without the walker. He is living with his sister who is younger than him. He has no other complaints otherwise. On 10/06/2016, the patient not having any major respiratory difficulties. He is sitting up on a chair. He is on room air. He is a failure to thrive. He has very poor appetite. Despite having the food the front of him is not having the ambition or the urge to eat foods. I noted the surgical consultation was done by Dr. Gr. His condition is stable for now. There has been no decompensation his condition over the past 24 hours. Objective - Vital Signs Vital signs: Vital Signs Temp 97.7 F 10/06/16 15:00 Pulse 94 10/06/16 15:00 Resp 16 10/06/16 15:00 BP 145/94 10/06/16 15:00 Pulse Ox 93 L 10/06/16 15:00 Intake & Output 10/05/16 10/06/16 10/06/16 18:59 06:59 18:59 Intake Total 150 120 Output Total 800 Balance 150 -800 120 Weight 44.452 kg Intake: Intake, IV Titration 150 Amount Levofloxacin 750Mg-D5w 150 Pmx 750 mg In Dextrose/ Water 1 150ml.bag @ 100 mls/hr IVPB Q24HR [facility] Rx# :[id number] Oral 120 Output: Urine 800 Other: Voiding Method Urinal Urinal Urinal # Voids 1 1 # Bowel Movements 1 - Exam Thin frail elderly male patient nonacute distress. He is not using excessive muscle breathing. He is quite emaciated and malnourished.Head exam was generally normal. There was no scleral icterus or corneal arcus. Mucous membranes were moist.Neck was supple and without jugular venous distension, thyromegaly, or carotid bruits. Carotids were easily palpable bilaterally. There was no adenopathy. Lung sounds are diminished bilaterally otherwise clear. Vessels are equal and symmetrical. No wheezes or rhonchi.Cardiac exam revealed the PMI to be normally situated and sized. The rhythm was regular and no extrasystoles were noted during several minutes of auscultation. The first and second heart sounds were normal and physiologic splitting of the second heart sound was noted. There were no murmurs, rubs, clicks, or gallops.Abdominal exam revealed normal bowel sounds. The abdomen was soft, non- tender, and without masses, organomegaly, or appreciable enlargement of the abdominal aorta.Examination of the extremities revealed easily palpable radial, femoral and pedal pulses. There was no cyanosis, clubbing or edema. The patient has significant muscle atrophy in lower extremities bilaterally and to some extent upper extremity. - Labs CBC & Chem 7: 10/06/16 06:47 10/06/16 06:47 Labs: Abnormal Lab Results - Last 24 Hours (Table) 10/06/16 10/06/16 Range/Units 06:47 06:47 Hgb 12.9 L (13.0-17.5) gm/dL Neutrophils # 7.9 H (1.3-7.7) k/uL Lymphocytes # 0.4 L (1.0-4.8) k/uL Potassium 3.1 L (3.5-5.1) mmol/L BUN 23 H (9-20) mg/dL Assessment and Plan Plan: Assessment 1 shortness of breath and acute influenza syndrome. Limited infiltration in the lingula and right midlung area, significant is not clear. Rule out aspiration 2 cachexia malnourishment and failure to thrive 3 difficulties swallowing, under investigation. 4 coronary artery disease 5 esophageal cancer status post esophagectomy with gastric poor 6 hypertension 7 hyperlipidemia 8 hypothyroidism 9 BPH 10 brother cancer Plan The pulmonary condition is stable for now. Continue same antibiotic coverage. Swallow evaluation. Unfortunately the patient is doing poorly in terms of his performance and functional and nutritional status. He has signs of failure to thrive. This is a dietary evaluation too. We'll continue to follow this case with the understanding that his overall prognosis poor.
[2016-10-06] MEDS: PRAVASTATIN SODIUM 20 MG TAB PO SCH (20:48)
[2016-10-06] MEDS: CHOLECALCIFEROL 1,000 UNIT TAB PO SCH (20:48)
[2016-10-07] MEDS: LEVOTHYROXINE 75 MCG TAB PO SCH (05:27)
[2016-10-07] MEDS: IPRATROPIUM-ALBUTEROL 3 ML NEB INHALATION SCH ×4 (07:45→19:37)
[2016-10-07 08:01] LABS: Basophils % (A) 0 %; CH 28.5; CHCM 32.8; Eosinophils % (A) 0 %; HCT 39.1 % (39.0-53.0); HDW 2.74; HGB 12.9 gm/dL (13.0-17.5); Luc # (Auto) 0.08; Luc % (Auto) 1; Lymphocytes # (A) 0.5 k/uL (1.0-4.8); Lymphocytes % (A) 4 %; MCH 28.7 pg (25.0-35.0); MCHC 32.9 g/dL (31.0-37.0); MCV 87.4 fL (80.0-100.0); Monocytes # (A) 0.5 k/uL (0-1.0); Monocytes % (A) 4 %; Neutrophils # (A) 11.5 k/uL (1.3-7.7); Neutrophils % (A) 91 %; RBC 4.47 m/uL (4.30-5.90); RDW 15.2 % (11.5-15.5); WBC 12.6 k/uL (3.8-10.6); WBC (Perox) 13.22
[2016-10-07 08:14] LABS: Anion Gap 9 mmol/L; Blood Urea Nitrogen 25 mg/dL (9-20); Calcium 8.8 mg/dL (8.4-10.2); Carbon Dioxide 24 mmol/L (22-30); Chloride 107 mmol/L (98-107); Glucose 84 mg/dL (74-99); Non-African American GFR(MDRD) >60 (>60 ml/min/1.73 sqM); Potassium 3.9 mmol/L (3.5-5.1); Sodium 140 mmol/L (137-145)
[2016-10-07] MEDS: LEVOFLOXACIN 750MG-D5W PMX 750 MG in DEXTROSE/WATER 1 150ML.BAG IVPB SCH (08:27)
[2016-10-07] MEDS: CLOPIDOGREL 75 MG TAB PO SCH (08:27)
[2016-10-07] MEDS: HEPARIN SODIUM,PORCINE 5,000 UNIT/ML 1 ML VIAL SQ SCH ×2 (08:27→20:43)
[2016-10-07] MEDS: ASPIRIN 81 MG CHEW PO SCH (08:27)
[2016-10-07] MEDS: LACTOBACILLUS ACIDOPH & BULGAR 1 EACH PACKET PO SCH (08:27)
[2016-10-07] MEDS: amLODIPine 2.5 MG TAB PO SCH ×2 (08:27→20:43)
[2016-10-07] MEDS: PANTOPRAZOLE 40 MG/10 ML VIAL IVP SCH (08:27)
[2016-10-07] MEDS: OSELTAMIVIR 60 MG/10 ML ORAL SYRINGE PO SCH ×2 (08:30→20:43)
--- NOTE | 2016-10-07 12:17 | PN ---
DATE OF SERVICE: 10/06/2016 This 85 -year-old gentleman admitted with bilateral pneumonia also had significant emaciation. The patient also has influenza B also. No chest pain. No palpitations. No fevers. The patient and diarrhea. On exam, alert and oriented times three. Pulse is 94, blood pressure 140/94, respiratory rate 16, temperature 97.7, pulse ox 93% on room air. HEENT: Conjunctivae normal. NECK: No jugular venous distention. CARDIOVASCULAR: S1, S2 muffled. RESPIRATORY: Breath sounds diminished at the bases. A few scattered rhonchi and crackles. Expiratory wheezing also present. ABDOMEN: Soft. Nontender. LEGS: No edema. No swelling. CENTRAL NERVOUS SYSTEM: No focal deficits. LABS: C. difficile negative. Potassium 3.1. ASSESSMENT: 1. Bilateral pneumonia with possibly gram-negative post-post- influenza pneumonia and influenza B positive. 2. Generalized weakness and tiredness, generalized emaciation and weight loss. 3. Severe protein calorie malnutrition with body mass index of 14.1. 4. Increased AST. 5. Possible dysphagia. 6. Increased lipase with a normal amylase. 7. Increased BUN with some dehydration, present on admission. 8. Urinary tract infection. 9. History of esophageal precancerous lesion and esophagectomy and gastric pull-through. 10. History of coronary artery disease. 11. History of gastroesophageal reflux disease. 12. Hypertension, essential. 13. Hyperlipidemia. 14. History of degenerative joint disease. 15. History of prostate disorder. 16. History of hypothyroidism. 17. History of shingles. 18. History of peptic disease. 19. History of constipation. 20. History of bladder surgery and bladder stone. 21. History of coronary artery disease/stent 22. Remote history of nicotine dependence. 23. FULL CODE. RECOMMENDATIONS AND DISCUSSION: In this 85-year-old gentleman who presented with multiple complex medical issues, we will monitor the patient closely. Continue the current medications. Continue symptomatic treatment. Otherwise at this time continue the bronchodilators. C. Difficile is negative. PT, OT evaluation. Possible ECF rehab. Guarded prognosis. Further recommendations to follow. MTDD
[2016-10-07] MEDS: MEGESTROL 400 MG/10 ML CUP PO SCH (12:48)
[2016-10-07] MEDS: CHOLECALCIFEROL 1,000 UNIT TAB PO SCH ×2 (12:49→20:43)
[2016-10-07] MEDS: B COMPLEX-VIT C-VIT E-ZINC 1 EACH TAB PO SCH (12:51)
--- NOTE | 2016-10-07 14:49 | P.PN ---
Subjective Principal diagnosis: Acute influenza syndrome and community-acquired pneumonia. 85-year-old male patient with previous history of coronary artery disease, bypass surgery, esophageal cancer status post transhiatal esophagectomy and gastric pull, coming in for generalized weakness, tiredness, weight loss, difficulty swallowing, unable to meet caloric requirements, and some degree of shortness of breath with cough and congestion. The patient denies having any aspiration. He was found to have positive influenza screen and he was started on Tamiflu. As part of further workup, a CAT scan of the chest was also ordered that showed a large intrathoracic stomach related to gastric pull post esophagectomy in addition to some vague limited infiltration of the right middle lobe and the left lingula. The patient was started and accommodation antibiotics including Tamiflu and Levaquin. Despite all this, the patient is not having any significant cough or sputum production. No signs of respiratory distress. He is on no oxygen at this point. He is a nonsmoker. He is very cachectic and thin and emaciated and he looks very malnourished and there is an obvious component of failure to thrive. No change in mental status. He is hard of hearing and is difficult to communicate with this patient. He tells that he is unable to ambulate. He needs assistance with activity and prior to that he was able to walk without the walker. He is living with his sister who is younger than him. He has no other complaints otherwise. On 10/06/2016, the patient not having any major respiratory difficulties. He is sitting up on a chair. He is on room air. He is a failure to thrive. He has very poor appetite. Despite having the food the front of him is not having the ambition or the urge to eat foods. I noted the surgical consultation was done by Dr. Gr. His condition is stable for now. There has been no decompensation his condition over the past 24 hours. On 10/07/2016, patient feels better, breathing a lot easier, less short of breath , however he looks debilitated, and he seems to be quite cachectic. And malnourished. Seen by general surgery on consultation, and it was felt that his poor oral intake is not secondary to dysphagia, it was felt to be more of a generalized picture of failure to thrive. And if feeding tube is to be placed, surgery is recommending open jejunostomy he is not a candidate for PEG tube because of his previous gastric pull-through. CBC was reviewed electrolytes were normal. Objective - Vital Signs Vital signs: Vital Signs Temp 99.2 F 10/07/16 07:00 Pulse 86 10/07/16 11:34 Resp 20 10/07/16 07:00 BP 135/74 10/07/16 07:00 Pulse Ox 97 10/07/16 07:51 Intake & Output 10/06/16 10/07/16 10/07/16 18:59 06:59 18:59 Intake Total 120 Balance 120 Intake: Oral 120 Other: Voiding Method Urinal Toilet Urinal # Voids 1 1 2 # Bowel Movements 1 - Exam Thin frail elderly male patient nonacute distress. He is not using excessive muscle breathing. He is quite emaciated and malnourished.Head exam was generally normal. There was no scleral icterus or corneal arcus. Mucous membranes were moist.Neck was supple and without jugular venous distension, thyromegaly, or carotid bruits. Carotids were easily palpable bilaterally. There was no adenopathy. Lung sounds are diminished bilaterally otherwise clear. Vessels are equal and symmetrical. No wheezes or rhonchi.Cardiac exam revealed the PMI to be normally situated and sized. The rhythm was regular and no extrasystoles were noted during several minutes of auscultation. The first and second heart sounds were normal and physiologic splitting of the second heart sound was noted. There were no murmurs, rubs, clicks, or gallops.Abdominal exam revealed normal bowel sounds. The abdomen was soft, non- tender, and without masses, organomegaly, or appreciable enlargement of the abdominal aorta.Examination of the extremities revealed easily palpable radial, femoral and pedal pulses. There was no cyanosis, clubbing or edema. The patient has significant muscle atrophy in lower extremities bilaterally and to some extent upper extremity. - Labs CBC & Chem 7: 10/07/16 07:13 10/07/16 07:13 Labs: Abnormal Lab Results - Last 24 Hours (Table) 10/07/16 10/07/16 Range/Units 07:13 07:13 WBC 12.6 H (3.8-10.6) k/uL Hgb 12.9 L (13.0-17.5) gm/dL Neutrophils # 11.5 H (1.3-7.7) k/uL Lymphocytes # 0.5 L (1.0-4.8) k/uL BUN 25 H (9-20) mg/dL Assessment and Plan Plan: 1 shortness of breath and acute influenza syndrome. Limited infiltration in the lingula and right midlung area, significant is not clear. Rule out aspiration 2 cachexia malnourishment and failure to thrive 3 difficulties swallowing, under investigation. 4 coronary artery disease 5 esophageal cancer status post esophagectomy with gastric poor 6 hypertension 7 hyperlipidemia 8 hypothyroidism 9 BPH Recommendation: Continue present supportive care measures, swallow evaluation was ordered by Dr. Mathis, consider discharge planning to ECF in the next 24 hours. Time with Patient: Less than 30
--- NOTE | 2016-10-07 16:47 | P.PN ---
Progress Note - Text The patient has no real complaints. On exam his vital signs appear stable. His abdomen soft. There is no significant tenderness. The patient's malnutrition will be observed. If he has significant failure to thrive or poor oral intake. We will consider open jejunostomy tube. We will follow with you
[2016-10-07] MEDS: PRAVASTATIN SODIUM 20 MG TAB PO SCH (20:43)
[2016-10-07 22:30] VITALS: RESP 16
--- NOTE | 2016-10-07 23:36 | PN ---
DATE OF SERVICE: 10/07/2016 This 85-year-old gentleman who presented with multiple medical problems has significant pneumonia and influenza; also tiredness and weakness. The patient also had diarrhea resulting from lactose intolerance apparently. No chest pain. No palpitation. No fever. Dr. Taylor has seen the patient. On exam, alert and oriented x3. Pulse 94, blood pressure 130/60, respiration 20, temperature 99.2. Pulse ox 94% on room air. HEENT: Conjunctivae normal. NECK: No jugular venous distention. CARDIOVASCULAR SYSTEM: S1, S2 muffled. RESPIRATORY SYSTEM: Breath sounds diminished at the bases. Scattered rhonchi and crackles. ABDOMEN: Soft, non-tender. LEGS: No edema. No swelling. NERVOUS SYSTEM: No focal deficit. LABS: C difficile is negative. WBC 12.6. ASSESSMENT: 1. Bilateral pneumonia, possibly Gram-negative, or status post post-influenza pneumonia with influenza B positive. 2. Generalized weakness and tiredness, generalized emaciation and weight loss. 3. Severe protein-calorie malnutrition with a body mass index of 14.1. 4. Increased AST. 5. Dysphagia. 6. Increased lipase with normal amylase. 7. Increased BUN with some dehydration, present on admission. 8. Urinary tract infection. 9. History of esophageal pre-cancer lesion, esophagectomy and gastric pull-through. 10. History of coronary artery disease. 11. History of gastroesophageal reflux disease. 12. Hypertension, essential. 13. Hyperlipidemia. 14. History of degenerative joint disease. 15. History of prostate disorder. 16. History of hypothyroidism. 17. History of shingles. 18. History of peptic ulcer disease. 19. History of constipation. 20. History of bladder surgery and bladder stones. 21. Coronary artery disease and stent. 22. Remote history nicotine dependence. 23. FULL CODE. RECOMMENDATIONS AND DISCUSSION: In this 85-year-old gentleman who presented with multiple complex medical issues, we will monitor the patient closely, continue the current medication, continue with symptomatic treatment. Otherwise, at this time I would recommend a barium swallow. Closely monitor with Surgery and multiple consultants. Guarded prognosis. Further recommendations to follow.
[2016-10-08] MEDS: LEVOTHYROXINE 75 MCG TAB PO SCH (05:27)
[2016-10-08] MEDS: IPRATROPIUM-ALBUTEROL 3 ML NEB INHALATION SCH ×4 (08:13→21:44)
[2016-10-08 08:29] LABS: Basophils % (A) 0 %; CH 28.4; CHCM 32.5; Eosinophils % (A) 0 %; HDW 2.66; HGB 12.7 gm/dL (13.0-17.5); Luc # (Auto) 0.07; Luc % (Auto) 1; Lymphocytes # (A) 0.5 k/uL (1.0-4.8); Lymphocytes % (A) 4 %; MCH 28.7 pg (25.0-35.0); MCHC 32.6 g/dL (31.0-37.0); Mean Platelet Volume 7.1; Monocytes # (A) 0.4 k/uL (0-1.0); Monocytes % (A) 3 %; Neutrophils # (A) 10.9 k/uL (1.3-7.7); Neutrophils % (A) 92 %; RBC 4.43 m/uL (4.30-5.90); RDW 15.2 % (11.5-15.5); WBC 11.9 k/uL (3.8-10.6); WBC (Perox) 11.81
[2016-10-08 08:40] LABS: Anion Gap 9 mmol/L; Blood Urea Nitrogen 25 mg/dL (9-20); Calcium 8.7 mg/dL (8.4-10.2); Carbon Dioxide 23 mmol/L (22-30); Chloride 107 mmol/L (98-107); Glucose 76 mg/dL (74-99); Non-African American GFR(MDRD) >60 (>60 ml/min/1.73 sqM); Potassium 3.5 mmol/L (3.5-5.1); Sodium 139 mmol/L (137-145)
[2016-10-08] MEDS: CLOPIDOGREL 75 MG TAB PO SCH (08:56)
[2016-10-08] MEDS: HEPARIN SODIUM,PORCINE 5,000 UNIT/ML 1 ML VIAL SQ SCH ×2 (08:56→21:27)
[2016-10-08] MEDS: ASPIRIN 81 MG CHEW PO SCH (08:56)
[2016-10-08] MEDS: PANTOPRAZOLE 40 MG TABLET PO SCH (08:56)
[2016-10-08] MEDS: amLODIPine 2.5 MG TAB PO SCH ×2 (08:56→21:26)
[2016-10-08] MEDS: LACTOBACILLUS ACIDOPH & BULGAR 1 EACH PACKET PO SCH (08:57)
[2016-10-08] MEDS: MEGESTROL 400 MG/10 ML CUP PO SCH (08:57)
[2016-10-08] MEDS: OSELTAMIVIR 60 MG/10 ML ORAL SYRINGE PO SCH ×2 (08:58→21:28)
[2016-10-08] MEDS: B COMPLEX-VIT C-VIT E-ZINC 1 EACH TAB PO SCH (12:44)
--- NOTE | 2016-10-08 12:56 | P.PN ---
Subjective Principal diagnosis: Acute influenza syndrome and community-acquired pneumonia. 85-year-old male patient with previous history of coronary artery disease, bypass surgery, esophageal cancer status post transhiatal esophagectomy and gastric pull, coming in for generalized weakness, tiredness, weight loss, difficulty swallowing, unable to meet caloric requirements, and some degree of shortness of breath with cough and congestion. The patient denies having any aspiration. He was found to have positive influenza screen and he was started on Tamiflu. As part of further workup, a CAT scan of the chest was also ordered that showed a large intrathoracic stomach related to gastric pull post esophagectomy in addition to some vague limited infiltration of the right middle lobe and the left lingula. The patient was started and accommodation antibiotics including Tamiflu and Levaquin. Despite all this, the patient is not having any significant cough or sputum production. No signs of respiratory distress. He is on no oxygen at this point. He is a nonsmoker. He is very cachectic and thin and emaciated and he looks very malnourished and there is an obvious component of failure to thrive. No change in mental status. He is hard of hearing and is difficult to communicate with this patient. He tells that he is unable to ambulate. He needs assistance with activity and prior to that he was able to walk without the walker. He is living with his sister who is younger than him. He has no other complaints otherwise. On 10/06/2016, the patient not having any major respiratory difficulties. He is sitting up on a chair. He is on room air. He is a failure to thrive. He has very poor appetite. Despite having the food the front of him is not having the ambition or the urge to eat foods. I noted the surgical consultation was done by Dr. Gr. His condition is stable for now. There has been no decompensation his condition over the past 24 hours. On 10/07/2016, patient feels better, breathing a lot easier, less short of breath , however he looks debilitated, and he seems to be quite cachectic. And malnourished. Seen by general surgery on consultation, and it was felt that his poor oral intake is not secondary to dysphagia, it was felt to be more of a generalized picture of failure to thrive. And if feeding tube is to be placed, surgery is recommending open jejunostomy he is not a candidate for PEG tube because of his previous gastric pull-through. CBC was reviewed electrolytes were normal. The patient is seen again today 10/08/2016 in follow-up on the regular medical floor. He is awake and alert in no acute distress. He is maintaining good O2 saturations on room air in the 90s. He's been afebrile. He did eat approximately 25% of his breakfast this morning. Currently sitting up in a chair and is encouraged to eat as much lunch as he can tolerate. Objective - Vital Signs Vital signs: Vital Signs Temp 97.7 F 10/08/16 07:00 Pulse 98 10/08/16 07:00 Resp 16 10/08/16 07:00 BP 149/89 10/08/16 07:00 Pulse Ox 93 L 10/08/16 07:00 Intake & Output 10/07/16 10/08/16 10/08/16 18:59 06:59 18:59 Intake Total 60 Balance 60 Intake: Oral 60 Other: Voiding Method Toilet Toilet Urinal Urinal # Voids 2 1 - Exam Thin frail elderly male patient nonacute distress. He is not using excessive muscle breathing. He is quite emaciated and malnourished.Head exam was generally normal. There was no scleral icterus or corneal arcus. Mucous membranes were moist.Neck was supple and without jugular venous distension, thyromegaly, or carotid bruits. Carotids were easily palpable bilaterally. There was no adenopathy. Lung sounds are diminished bilaterally otherwise clear. Vessels are equal and symmetrical. No wheezes or rhonchi.Cardiac exam revealed the PMI to be normally situated and sized. The rhythm was regular and no extrasystoles were noted during several minutes of auscultation. The first and second heart sounds were normal and physiologic splitting of the second heart sound was noted. There were no murmurs, rubs, clicks, or gallops.Abdominal exam revealed normal bowel sounds. The abdomen was soft, non- tender, and without masses, organomegaly, or appreciable enlargement of the abdominal aorta.Examination of the extremities revealed easily palpable radial, femoral and pedal pulses. There was no cyanosis, clubbing or edema. The patient has significant muscle atrophy in lower extremities bilaterally and to some extent upper extremity. - Labs CBC & Chem 7: 10/08/16 07:54 10/08/16 07:54 Labs: Abnormal Lab Results - Last 24 Hours (Table) 10/08/16 10/08/16 Range/Units 07:54 07:54 WBC 11.9 H (3.8-10.6) k/uL Hgb 12.7 L (13.0-17.5) gm/dL Neutrophils # 10.9 H (1.3-7.7) k/uL Lymphocytes # 0.5 L (1.0-4.8) k/uL BUN 25 H (9-20) mg/dL Assessment and Plan Plan: Impression: 1 shortness of breath and acute influenza syndrome. Limited infiltration in the lingula and right midlung area, significant is not clear. Rule out aspiration 2 cachexia malnourishment and failure to thrive 3 difficulties swallowing, under investigation. 4 coronary artery disease 5 esophageal cancer status post esophagectomy with gastric poor 6 hypertension 7 hyperlipidemia 8 hypothyroidism 9 BPH Plan: The patient was seen and evaluated by Dr. Seaed. He is stable from the pulmonary standpoint. He is tolerating some food. No coughing or choking. Results of barium swallow are pending. We'll repeat the chest x-ray. We'll continue to follow.
--- NOTE | 2016-10-08 13:50 | XR ---
EXAMINATION TYPE: XR chest 1V portable DATE OF EXAM: 10/08/2016 1:30 PM COMPARISON: Prior chest x-ray September HISTORY: Right lower lobe infiltrate TECHNIQUE: Single frontal view of the chest is obtained. FINDINGS: Postoperative changes are again noted status post gastric pull-through. Apical scarring, b lunting of the right costophrenic angle again noted. Contrast material present within the lower aspec t of the pull-through. Patient is rotated. Heart size thought to be stable. There are prominent lung volumes. Dense vascular calcifications are present. IMPRESSION: Postop changes, possible small right pleural effusion versus chronic pleural reaction. T here is scarring versus, underlying COPD. Follow-up as indicated.
--- NOTE | 2016-10-08 15:35 | FL ---
Modified barium swallow. HISTORY: Dysphagia. Modified barium swallow was performed with the department of speech pathology. The patient was prese nted with various consistencies of barium. There is mild transient penetration. No evidence for aspiration. Gastric pull-through changes identif ied. Full report is to follow from the department of speech pathology. Impression: There is mild transient penetration.
[2016-10-08] MEDS ORDERED: LEVOFLOXACIN 750 MG TAB PO SCH (21:00)
--- NOTE | 2016-10-08 21:24 | PN ---
DATE OF SERVICE: 10/08/2016 This 85-year-old gentleman presented with multiple medical problems, including significant pneumonia as well as generalized weakness and tiredness and malnutrition. He also had significant esophageal surgery. The most recent barium swallow suspected some aspiration. The patient is also being worked up for ECF rehab at this time. No chest pain. No palpitation. On exam, alert and oriented x2. The pulse is 95, blood pressure 135/75, respiration 16, temperature 97.7, pulse ox 94% on room air. HEENT: Conjunctivae normal. NECK: No jugular venous distention. CARDIOVASCULAR SYSTEM: S1, S2 muffled. RESPIRATORY SYSTEM: Breath sounds diminished at the bases. Bilateral scattered rhonchi and crackles. ABDOMEN: Soft, non-tender. LEGS: No edema. No swelling. NERVOUS SYSTEM: No focal deficit. LABS: WBC 11.8, hemoglobin 12.7. C difficile is negative. ASSESSMENT: 1. Bilateral pneumonia, possibly Gram-negative, or influenza pneumonia. 2. Influenza B positive. 3. Generalized weakness and tiredness; generalized emaciation and weight loss. 4. Severe protein-calorie malnutrition with a body mass index of 14.1. 5. Increased AST. 6. Dysphagia. 7. Possible aspiration. 8. Increased lipase and normal amylase. 9. Increased BUN with some dehydration, present on admission. 10. Urinary tract infection. 11. History of esophageal precancerous lesion, esophagectomy and gastric pullthrough. 12. History of coronary artery disease. 13. History of gastroesophageal reflux disease. 14. Hypertension, essential. 15. Hyperlipidemia. 16. History of degenerative joint disease. 17. History of prostate disorder. 18. History of hypothyroidism. 19. History of shingles. 20. History of peptic ulcer disease. 21. History of constipation. 22. History of bladder surgery and bladder stone. 23. History of coronary artery disease, stent. 24. Remote history of nicotine dependence. 25. FULL CODE. RECOMMENDATIONS AND DISCUSSION: I recommend to continue with the current medications, continue with the monitoring, symptomatic treatment, continue with antibiotics. Continue the rest of the medications. Discussed with Surgery. Possible EGD. Continue the rest of the medications. Possibly ECF rehab. Calorie count. Further recommendations to follow. Prognosis guarded.
[2016-10-08] MEDS: PRAVASTATIN SODIUM 20 MG TAB PO SCH (21:27)
[2016-10-08] MEDS: CHOLECALCIFEROL 1,000 UNIT TAB PO SCH (21:27)
[2016-10-09] MEDS: LEVOTHYROXINE 75 MCG TAB PO SCH (05:39)
[2016-10-09 08:17] VITALS: BP 141/76; PULSE 76; TEMP 98
[2016-10-09] MEDS: MEGESTROL 400 MG/10 ML CUP PO SCH (08:31)
[2016-10-09] MEDS: amLODIPine 2.5 MG TAB PO SCH (08:31)
[2016-10-09] MEDS: CLOPIDOGREL 75 MG TAB PO SCH (08:31)
[2016-10-09] MEDS: ASPIRIN 81 MG CHEW PO SCH (08:31)
[2016-10-09] MEDS: LACTOBACILLUS ACIDOPH & BULGAR 1 EACH PACKET PO SCH (08:31)
[2016-10-09] MEDS: PANTOPRAZOLE 40 MG TABLET PO SCH (08:31)
[2016-10-09] MEDS: HEPARIN SODIUM,PORCINE 5,000 UNIT/ML 1 ML VIAL SQ SCH (08:31)
[2016-10-09] MEDS: OSELTAMIVIR 60 MG/10 ML ORAL SYRINGE PO SCH (08:33)
[2016-10-09] MEDS: IPRATROPIUM-ALBUTEROL 3 ML NEB INHALATION SCH ×2 (08:45→13:34)
[2016-10-09 08:53] LABS: Basophils % (A) 0 %; CH 29.1; CHCM 32.7; Eosinophils % (A) 0 %; HCT 40.4 % (39.0-53.0); HDW 2.63; HGB 12.8 gm/dL (13.0-17.5); Luc # (Auto) 0.11; Luc % (Auto) 1; Lymphocytes # (A) 0.6 k/uL (1.0-4.8); Lymphocytes % (A) 5 %; MCH 28.3 pg (25.0-35.0); MCHC 31.6 g/dL (31.0-37.0); MCV 89.4 fL (80.0-100.0); Mean Platelet Volume 7.2; Monocytes # (A) 0.3 k/uL (0-1.0); Monocytes % (A) 2 %; Neutrophils # (A) 12.5 k/uL (1.3-7.7); Neutrophils % (A) 92 %; RBC 4.52 m/uL (4.30-5.90); RDW 15.4 % (11.5-15.5); WBC 13.6 k/uL (3.8-10.6); WBC (Perox) 13.74
[2016-10-09 09:04] LABS: Anion Gap 9 mmol/L; Blood Urea Nitrogen 26 mg/dL (9-20); Calcium 8.8 mg/dL (8.4-10.2); Carbon Dioxide 24 mmol/L (22-30); Chloride 107 mmol/L (98-107); Glucose 69 mg/dL (74-99); Non-African American GFR(MDRD) >60 (>60 ml/min/1.73 sqM); Potassium 3.2 mmol/L (3.5-5.1); Sodium 140 mmol/L (137-145)
[2016-10-09] MEDS ORDERED: POTASSIUM CHLORIDE ER 20 MEQ TAB.ER PO STA (10:21)
--- NOTE | 2016-10-09 11:32 | DS ---
DATE OF ADMISSION: 10/04/2016 DATE OF DISCHARGE: The patient is an 85-old admitted with severe pneumonia and severe protein calorie malnutrition and generalized weakness, found to have influenza. The patient is on Tamiflu. There was suspicion of aspiration pneumonia and speech therapy evaluated the patient. Patient has an infiltrate in the right middle lobe and right lower lobe. Speech said there is no significant aspiration and speech therapy is recommending mechanical soft diet and thin liquids. Patient will be discharged on 5 more days of Augmentin along with completion of Tamiflu with 6 more doses. Patient was seen and examined on the day of discharge. Vitals are stable. PHYSICAL EXAMINATION: GENERAL: The patient is thin built, alert and oriented x3. HEENT: Pupils are round and equally reacting to light. EOMI. No scleral icterus. No conjunctival pallor. Normocephalic, atraumatic. No pharyngeal erythema. No thyromegaly. CARDIOVASCULAR: S1 and S2 present. No murmurs, rubs, or gallops. PULMONARY: Chest is clear to auscultation, no wheezing or crackles. ABDOMEN: Soft, nontender, nondistended, normoactive bowel sounds. No palpable organomegaly. MUSCULOSKELETAL: No joint swelling or deformity. EXTREMITIES: No cyanosis, clubbing, or pedal edema. NEUROLOGICAL: Gross neurological examination did not reveal any focal deficits. SKIN: No rashes. ASSESSMENT AND PLAN: 1. Sepsis secondary to influenza B. 2. Possible aspiration pneumonia with infiltrate in the right middle and lower lobe. 3. Severe protein calorie malnutrition. 4. History of esophageal precancerous lesion with status post esophagectomy. 5. Hypertension. 6. Hyperlipidemia. 7. Hypothyroidism. 8. Gastroesophageal reflux disease. 9. Coronary artery disease. Patient will be discharged today to subacute rehabilitation. Activity as tolerated. Diet: Mechanical soft diet as mentioned above. Patient will follow with Dr. Koehler or Dr. Carroll in the subacute rehab. Activity as tolerated. Cardiac diet. Spent greater than 35 minutes in total discharge process. Please refer to my depart summary for the details of discharge medications.
[2016-10-09] MEDS: B COMPLEX-VIT C-VIT E-ZINC 1 EACH TAB PO SCH (11:56)
--- NOTE | 2016-10-09 12:22 | P.PN ---
Subjective Principal diagnosis: Acute influenza syndrome and community-acquired pneumonia. 85-year-old male patient with previous history of coronary artery disease, bypass surgery, esophageal cancer status post transhiatal esophagectomy and gastric pull, coming in for generalized weakness, tiredness, weight loss, difficulty swallowing, unable to meet caloric requirements, and some degree of shortness of breath with cough and congestion. The patient denies having any aspiration. He was found to have positive influenza screen and he was started on Tamiflu. As part of further workup, a CAT scan of the chest was also ordered that showed a large intrathoracic stomach related to gastric pull post esophagectomy in addition to some vague limited infiltration of the right middle lobe and the left lingula. The patient was started and accommodation antibiotics including Tamiflu and Levaquin. Despite all this, the patient is not having any significant cough or sputum production. No signs of respiratory distress. He is on no oxygen at this point. He is a nonsmoker. He is very cachectic and thin and emaciated and he looks very malnourished and there is an obvious component of failure to thrive. No change in mental status. He is hard of hearing and is difficult to communicate with this patient. He tells that he is unable to ambulate. He needs assistance with activity and prior to that he was able to walk without the walker. He is living with his sister who is younger than him. He has no other complaints otherwise. On 10/06/2016, the patient not having any major respiratory difficulties. He is sitting up on a chair. He is on room air. He is a failure to thrive. He has very poor appetite. Despite having the food the front of him is not having the ambition or the urge to eat foods. I noted the surgical consultation was done by Dr. Gr. His condition is stable for now. There has been no decompensation his condition over the past 24 hours. On 10/07/2016, patient feels better, breathing a lot easier, less short of breath , however he looks debilitated, and he seems to be quite cachectic. And malnourished. Seen by general surgery on consultation, and it was felt that his poor oral intake is not secondary to dysphagia, it was felt to be more of a generalized picture of failure to thrive. And if feeding tube is to be placed, surgery is recommending open jejunostomy he is not a candidate for PEG tube because of his previous gastric pull-through. CBC was reviewed electrolytes were normal. The patient is seen again today 10/08/2016 in follow-up on the regular medical floor. He is awake and alert in no acute distress. He is maintaining good O2 saturations on room air in the 90s. He's been afebrile. He did eat approximately 25% of his breakfast this morning. Currently sitting up in a chair and is encouraged to eat as much lunch as he can tolerate. The patient is seen again today [email or web address] in follow-up. He is awake and alert in no acute distress. He is tolerating his breakfast and his appetite is improving. He denies any shortness of breath, cough or congestion. He is maintaining good O2 saturations in the 90s on room air. He is afebrile. He remains on Levaquin and Tamiflu. Objective - Vital Signs Vital signs: Vital Signs Temp 98 F 10/09/16 07:00 Pulse 76 10/09/16 07:00 Resp 16 10/09/16 07:00 BP 141/76 10/09/16 07:00 Pulse Ox 93 L 10/09/16 07:00 Intake & Output 10/08/16 10/09/16 10/09/16 18:59 06:59 18:59 Intake Total 0 Output Total 100 100 Balance -100 -100 Weight 44.452 kg 45 kg Intake: Oral 0 Output: Urine 100 100 Other: Voiding Method Toilet Toilet Toilet Urinal Urinal Urinal # Voids 1 2 - Exam Thin frail elderly male patient nonacute distress. He is not using excessive muscle breathing. He is quite emaciated and malnourished.Head exam was generally normal. There was no scleral icterus or corneal arcus. Mucous membranes were moist.Neck was supple and without jugular venous distension, thyromegaly, or carotid bruits. Carotids were easily palpable bilaterally. There was no adenopathy. Lung sounds are diminished bilaterally otherwise clear. Vessels are equal and symmetrical. No wheezes or rhonchi.Cardiac exam revealed the PMI to be normally situated and sized. The rhythm was regular and no extrasystoles were noted during several minutes of auscultation. The first and second heart sounds were normal and physiologic splitting of the second heart sound was noted. There were no murmurs, rubs, clicks, or gallops.Abdominal exam revealed normal bowel sounds. The abdomen was soft, non- tender, and without masses, organomegaly, or appreciable enlargement of the abdominal aorta.Examination of the extremities revealed easily palpable radial, femoral and pedal pulses. There was no cyanosis, clubbing or edema. The patient has significant muscle atrophy in lower extremities bilaterally and to some extent upper extremity. - Labs CBC & Chem 7: 10/09/16 07:43 10/09/16 07:43 Labs: Abnormal Lab Results - Last 24 Hours (Table) 10/09/16 10/09/16 Range/Units 07:43 07:43 WBC 13.6 H (3.8-10.6) k/uL Hgb 12.8 L (13.0-17.5) gm/dL Neutrophils # 12.5 H (1.3-7.7) k/uL Lymphocytes # 0.6 L (1.0-4.8) k/uL Potassium 3.2 L (3.5-5.1) mmol/L BUN 26 H (9-20) mg/dL Glucose 69 L (74-99) mg/dL Assessment and Plan Plan: Impression: 1 shortness of breath and acute influenza syndrome. Limited infiltration in the lingula and right midlung area, significant is not clear. Rule out aspiration 2 cachexia malnourishment and failure to thrive 3 difficulties swallowing, under investigation. 4 coronary artery disease 5 esophageal cancer status post esophagectomy with gastric poor 6 hypertension 7 hyperlipidemia 8 hypothyroidism 9 BPH Plan: The patient was seen and evaluated by Dr. Saeed. His chest x-ray and labs were reviewed. He is stable from the pulmonary standpoint. We'll see him on an as-needed basis.
== END 2016-10-09 14:10 | DRG 177 ==
LOC: EC 14:58 → 5MS5E 18:27
PROVIDERS: ADMIT Internal Medicine; ATTEND Internal Medicine
DX: J69.0 Pneumonitis due to inhalation of food and vomit (principal); E43 Unspecified severe protein-calorie malnutrition; I71.2 Thoracic aortic aneurysm, without rupture; J90 Pleural effusion, not elsewhere classified; E86.0 Dehydration; I73.9 Peripheral vascular disease, unspecified; R13.10 Dysphagia, unspecified; R64 Cachexia; Z95.1 Presence of aortocoronary bypass graft; Z68.1 Body mass index [BMI] 19.9 or less, adult; J10.08 Influenza due to other identified influenza virus with other specified pneumonia; D18.03 Hemangioma of intra-abdominal structures; E03.9 Hypothyroidism, unspecified; E73.9 Lactose intolerance, unspecified; E78.5 Hyperlipidemia, unspecified; H35.30 Unspecified macular degeneration; H91.90 Unspecified hearing loss, unspecified ear; I10 Essential (primary) hypertension; I25.10 Atherosclerotic heart disease of native coronary artery without angina pectoris; I25.2 Old myocardial infarction; I49.3 Ventricular premature depolarization; J10.1 Influenza due to other identified influenza virus with other respiratory manifestations; K21.9 Gastro-esophageal reflux disease without esophagitis; K22.70 Barrett's esophagus without dysplasia; K59.00 Constipation, unspecified; N40.0 Benign prostatic hyperplasia without lower urinary tract symptoms; R62.7 Adult failure to thrive; Z79.02 Long term (current) use of antithrombotics/antiplatelets; Z79.899 Other long term (current) drug therapy; Z82.49 Family history of ischemic heart disease and other diseases of the circulatory system; Z85.01 Personal history of malignant neoplasm of esophagus; Z85.51 Personal history of malignant neoplasm of bladder; Z86.19 Personal history of other infectious and parasitic diseases; Z87.01 Personal history of pneumonia (recurrent); Z87.11 Personal history of peptic ulcer disease; Z87.442 Personal history of urinary calculi; Z87.891 Personal history of nicotine dependence; Z95.5 Presence of coronary angioplasty implant and graft
CPT/HCPCS: 36415; 71010; 71260; 74177; 74230; 80048; 80053; 81001; 82150; 82550; 82553; 83690; 83735; 84100; 84443; 84484; 85025; 85610; 85652; 85730; 86140; 87040; 87086; 87493; 87502; 93005; 94640; 94760; 96360; 96361; 99285